=== PATIENT | female | born 1980 | race Caucasian/White ===

== ENCOUNTER 2017-02-02 10:29 | Emergency (ER) | payer BC, OTHER ==
[~2017-02-02 10:29] MED LIST: BANZ400T OR; FELB600 PO; IBUP-232 PO; LAMO150T OR; TOPI100 PO
[2017-02-02 10:38] VITALS: BP 119/69; PULSE 87; RESP 17; TEMP 98.2; O2SAT 98
--- NOTE | 2017-02-02 10:39 | PD ---
HPI . Seizure with head laceration Chief Complaint: seizure Time Seen by Provider: 10:39 Travel History International Travel<30 days: No Contact w/Intl Traveler<30days: No Traveled to known affect area: No History of Present Illness HPI 36-year-old female who is mentally retarded here with seizure activity this morning. Patient was at her work program when all of a sudden she had a sudden onset of seizure, falling backwards hitting her head on a manhole cover. She now has a laceration to the back of her occiput. The event was witnessed and there was reports of her having seizure-like activity for approximately 2 minutes. She appears to be back at her baseline per her case management rn's reports. Her parents arrived and patient answered their questions. She verbalized that she had no pain. 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) : 0 Para: 0 Past Surgical History Other Surgery: Yes (2004--"VAGAL NERVE STIMULATOR" IN L.CHEST WALL) Social History Alcohol Use: No Tobacco Use: No Substance Use: No Allergies-Medications (Allergen,Severity, Reaction): Coded Allergies: No Known Allergies (Verified , 10/10/11) Reported Meds & Prescriptions Reported Meds & Active Scripts Active Reported Topamax (Topiramate) 200 Mg Tab 200 Mg PO BID Banzel (Rufinamide) 400 Mg Tab 400 Mg PO BID Lamictal (Lamotrigine) 100 Mg Tab 100 Mg PO BID Review of Systems General / Constitutional: No: Fever Eyes: No: Visual changes HENT: No: Headaches Cardiovascular: No: Chest Pain or Discomfort Respiratory: No: Shortness of Breath Gastrointestinal: No: Abdominal Pain Genitourinary: No: Dysuria Musculoskeletal: No: Pain Skin: Positive Other (scalp laceration ), No Rash Neurologic: Positive: Seizures, No: Weakness Psychiatric: No: Depression Endocrine: No: Polydipsia Hematologic/Lymphatic: No: Easy Bruising Physical Exam Narrative GENERAL: AAO x 3, no acute distress, Well-nourished, well-developed patient. SKIN: Warm and dry. No visible rashes or bruising. 2 cm laceration to the occiput, HEAD: Normocephalic and atraumatic. EYES: No scleral icterus. No injection or drainage. PERRLA ENT: No nasal drainage noted. Mucous membranes pink. Airway patent. NECK: Supple, trachea midline. No JVD. CARDIOVASCULAR: Regular rate and rhythm without murmurs, gallops, or rubs. RESPIRATORY: Breath sounds equal bilaterally. No accessory muscle use. No rhonchi or rales. GASTROINTESTINAL: Abdomen soft, non-tender, nondistended. EXTREMITIES: No cyanosis or edema. BACK: Nontender without obvious deformity. NEURO: grossly intact and baseline per family reports, no postictal state PSYCH:normal affect. Data Data Last Documented VS Vital Signs Date Time Temp Pulse Resp B/P (MAP) Pulse Ox O2 Delivery O2 Flow Rate FiO2 02/02/17 10:50 84 17 98 Room Air 02/02/17 10:38 98.2 119/69 (86) Orders Orders Ct Brain W/O Iv Contrast(Rout) (02/02/17 ) Blood Glucose (02/02/17 10:40) Ecg Monitoring (02/02/17 10:40) Iv Access Insert/Monitor (02/02/17 10:40) Oximetry (02/02/17 10:40) Sodium Chloride 0.9% Flush (Ns Flush) (02/02/17 10:45) Tetanus/Diphtheria Tox Adult (Tetanus/Di (02/02/17 11:00) Lidocaine 1% Inj (50 Ml) (Xylocaine 1% I (02/02/17 11:00) MDM Medical Decision Making Medical Screen Exam Complete: Yes Emergency Medical Condition: Yes Medical Record Reviewed: Yes Differential Diagnosis Breakthrough seizure, seizure disorder, scalp laceration, closed head injury, less likely ICH Narrative Course 36 yr old female here s/p seizure activity and now with scalp laceration. I have discussed the case with my attending. The patient has chronic seizures and break through seizures daily. Labs would not really be helpful in this case. We will check a CT scan of the brain. Patient's mom gave verbal consent to repair laceration. 4 wyatt were placed without incident. I have reviewed her CT scan. There is no acute finding. Her CT appears similar to previous years. She will need to have the wyatt removed in approximately 7 days. I discussed with her mother. I recommend outpatient follow-up with neurology. Procedures Procedure Narrative LACERATION LOCATION: Occiput of scalp LENGTH: 2 cm NUMBER OF STITCHES/WYATT: 4 REPAIR: The area of the laceration was prepped with Betadine and sterilely draped. The laceration was infiltrated with 1% lidocaine. The wound was copiously irrigated and explored without evidence of foreign body, tendon injury or neurovascular injury. The wound was closed using wyatt. This was a single layer repair. Patient tolerated the procedure well. Diagnosis Primary Impression: Closed head injury Qualified Codes: S09.90XA - Unspecified injury of head, initial encounter Additional Impressions: Scalp laceration Qualified Codes: S01.01XA - Laceration without foreign body of scalp, initial encounter Seizure disorder Patient Instructions: General Instructions Additional Instructions: Keep area clean and dry. Use gauze as we discussed and change 1-2 times a day. Watch for signs of infection: fever, redness, swelling, warmth, pus or drainage , red streaks around the cut, and increased pain from the area. If you received a tetanus shot, you may experience tenderness at the injection site. This is normal. These 4 wyatt will need to be removed in approximately 7 days. You can return to the emergency department or follow-up with your primary care provider. Follow up with your neurologist. Disposition: 01 DISCHARGE HOME Condition: Stable Evelin Story Feb 02, 2017 10:39
[2017-02-02] MEDS ORDERED: SODIUM CHLORIDE 0.9% FLUSH 10 ML FLUSH IVF PRN (10:45)
[2017-02-02 10:50] VITALS: PULSE 84; RESP 17; O2SAT 98
[2017-02-02] MEDS ORDERED: TOPI200 PO (10:50)
[2017-02-02] MEDS ORDERED: LAMO100 PO (10:50)
[2017-02-02] MEDS ORDERED: BANZ400T PO (10:50)
[2017-02-02] MEDS ORDERED: LIDOCAINE HCL 1% 50 ML VIAL INFIL ONE (11:00)
[2017-02-02] MEDS ORDERED: TETANUS/DIPHTHERIA TOXOID ADULT 0.5 ML VIAL IM ONE (11:00)
--- NOTE | 2017-02-02 11:24 | RADRPT ---
EXAM DATE/TIME: 02/02/2017 11:04 [facility] COMPARISON: No previous studies available for comparison. INDICATIONS : Seizure. Laceration to posterior head. RADIATION DOSE: 56.35 CTDIvol (mGy) MEDICAL HISTORY : Seizures. SURGICAL HISTORY : None. ENCOUNTER: Initial ACUITY: 1 day PAIN SCALE: Non-responsive LOCATION: cranial TECHNIQUE: Multiple contiguous axial images were obtained of the head. Using automated exposure control and adj ustment of the mA and/or kV according to patient size, radiation dose was kept as low as reasonably a chievable to obtain optimal diagnostic quality images. DICOM format image data is available electro nically for review and comparison. FINDINGS: There is no evidence of intracranial hemorrhage, acute infarct, or mass. 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 No fractures are seen. CONCLUSION: No acute disease. Please see above. Harshad Zuniga MD on February 02, 2017 at 11:18 Board Certified Radiologist. This report was verified electronically.
[2017-02-02 11:45] VITALS: BP 120/78; TEMP 76
== END 2017-02-02 11:45 | disposition home or self-care (01) ==
LOC: NEPD 10:29
DX: S09.90XA Unspecified injury of head, initial encounter (principal); S01.01XA Laceration without foreign body of scalp, initial encounter; G40.909 Epilepsy, unspecified, not intractable, without status epilepticus; W01.198A Fall on same level from slipping, tripping and stumbling with subsequent striking against other object, initial encounter; Y92.410 Unspecified street and highway as the place of occurrence of the external cause
CPT/HCPCS: 12001; 70450; 90471; 90714; 96372

== ENCOUNTER 2017-02-13 12:24 | Emergency (ER) | payer BC, OTHER ==
[~2017-02-13] VITALS: Ht 167.6 cm; Wt 60.4 kg
[~2017-02-13 12:24] MED LIST changes: -BANZ400T OR; +BANZ400T PO; -FELB600 PO; -IBUP-232 PO; +LAMO100 PO; -LAMO150T OR; -TOPI100 PO; +TOPI200 PO
[2017-02-13 12:40] VITALS: BP 101/67; PULSE 85; RESP 16; TEMP 97.5
--- NOTE | 2017-02-13 13:00 | PD ---
HPI . Staple removal Chief Complaint: Wound/Suture/Staple Re-Check Time Seen by Provider: 12:45 Travel History International Travel<30 days: No Contact w/Intl Traveler<30days: No Traveled to known affect area: No History of Present Illness HPI 36-year-old female presents emergency department to get wyatt removed from the occipital portion of her head. Patient is cognitively delayed and has a history of seizures. Patient had a seizure on 02 February and presented to the emergency department for evaluation due to her falling and hitting her head. There was a 3 cm laceration that was repaired using 4 wyatt. The laceration has healed appropriately and the patient is here to get the wyatt removed. Patient presents with her caregiver who is actively involved with her care. Patient appears to be in no acute distress. 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) Tetanus Vaccination: < 5 Years Influenza Vaccination: No ?: Not : 0 Para: 0 Past Surgical History Other Surgery: Yes (2004--"VAGAL NERVE STIMULATOR" IN L.CHEST WALL) Social History Alcohol Use: No Tobacco Use: No Substance Use: No Allergies-Medications (Allergen,Severity, Reaction): Coded Allergies: No Known Allergies (Verified , 02/13/17) Reported Meds & Prescriptions Reported Meds & Active Scripts Active Reported Topamax (Topiramate) 200 Mg Tab 200 Mg PO BID Banzel (Rufinamide) 400 Mg Tab 400 Mg PO BID Lamictal (Lamotrigine) 100 Mg Tab 100 Mg PO BID Review of Systems Except as stated in HPI: all other systems reviewed are Neg Physical Exam Narrative GENERAL: Well-nourished, well-developed patient 36-year-old female patient who has cognitive delays. She is in no acute distress. SKIN: 3 cm scar to the occipital portion of the scalp with [address] that were removed during physical exam. Focused skin assessment warm/dry. HEAD: Normocephalic. Atraumatic EYES: No scleral icterus. No injection or drainage. NECK: Supple, trachea midline. No JVD or lymphadenopathy. CARDIOVASCULAR: Regular rate and rhythm without murmurs, gallops, or rubs. RESPIRATORY: Breath sounds equal bilaterally. No accessory muscle use. GASTROINTESTINAL: Abdomen soft, non-tender, nondistended. MUSCULOSKELETAL: No cyanosis, or edema. BACK: Nontender without obvious deformity. No CVA tenderness. Data Data Last Documented VS Vital Signs Date Time Temp Pulse Resp B/P (MAP) Pulse Ox O2 Delivery O2 Flow Rate FiO2 02/13/17 12:40 97.5 85 16 101/67 (78) [facility] Medical Decision Making Medical Screen Exam Complete: Yes Emergency Medical Condition: Yes Differential Diagnosis Differential diagnoses include but not limited to laceration repair, staple removal, wound recheck Narrative Course 36-year-old female presents to the emergency department to get 4 wyatt removed from the occipital portion of her scalp. The laceration to the occipital portion of her scalp was approximated and scarred with [address] The scar was approximately 3 cm in length. The 4 wyatt are removed. Patient handled the procedure well. Patient will be discharged home with her caregiver. Diagnosis Primary Impression: Removal of wyatt Patient Instructions: General Instructions, Wound Healing and Your Diet (DC) Additional Instructions: Please return to emergency department if your symptoms return or worsen. Follow up with your primary care provider. Take medications as prescribed. Med/Other Pt SpecificInfo: No Change to Meds Disposition: 01 DISCHARGE HOME Condition: Stable MargieKrys Lizz REYNOLDS Feb 13, 2017 13:00
== END 2017-02-13 13:04 | disposition home or self-care (01) ==
LOC: PHEFT 12:24
DX: Z48.02 Encounter for removal of sutures (principal); R56.9 Unspecified convulsions; G80.9 Cerebral palsy, unspecified
CPT/HCPCS: 99281